=== PATIENT | male | born 1980 | race Caucasian/White ===

== ENCOUNTER → 2021-04-16 | Day surgery (SDC) | payer OTHER ==
[~2021-04-16] VITALS: Ht 177.8 cm; Wt 102.1 kg
[~2021-04-16] MED LIST: ATEN-60 PO; HYDR-4833 PO; HYDROmorphone HCL 2 MG/ML VL IV PRN; HYDROmorphone HCL 2 MG/ML VL ONE; LIDOCAINE 2% (LOCAL ANESTH.) PF 5ml SDV ONE; LOSA25TA38 PO; MIDAZOLAM HCL 2MG/2ML 2ml VIAL (1mg/ml) ONE; ONDANSETRON HCL 4 MG/2 ML VIAL IV PRN; ONDANSETRON HCL 4 MG/2 ML VIAL ONE; PROPOFOL 10 MG/ML 20 ML IV ONE; TAMS0.4C36 PO; ceFAZolin 1GM/50ML 100 ML IV ONE; fentaNYL CITRATE 100 MCG/2 ML VL ONE
[2021-04-16 16:45] VITALS: BP 122/75
== END | disposition home or self-care (01) ==
LOC: SUR 11:13
PROVIDERS: ATTEND Urology
DX: T19.8XXA Foreign body in other parts of genitourinary tract, initial encounter (principal); N20.2 Calculus of kidney with calculus of ureter; I10 Essential (primary) hypertension; J45.909 Unspecified asthma, uncomplicated; F17.200 Nicotine dependence, unspecified, uncomplicated; Z98.890 Other specified postprocedural states; Z79.899 Other long term (current) drug therapy; Z20.822 Contact with and (suspected) exposure to COVID-19; Y82.8 Other medical devices associated with adverse incidents
CPT/HCPCS: 52310; 74018; C1769; J0690; J1170; J2001; J2250; J2405; J2704; J3010; J7030; U0003